=== PATIENT | female | born 1995 | race Two or more races ===

== ENCOUNTER 2018-01-01 15:21 | Emergency (ER) | payer MEDICAID ==
[~2018-01-01] VITALS: Ht 170.2 cm; Wt 59.0 kg
[2018-01-01 16:01] LABS: Urine Bacteria FEW /hpf (None Seen); Urine Blood TRACE /uL (Negative); Urine Specific Gravity 1.007 (1.001-1.035); Urine WBC 1 /hpf (0 - 5)
[2018-01-01 16:38] LABS: Basophils # (auto) 0 uL; Hematocrit 43.7 % (36.0-46.0); Lymphocytes # (auto) 1.3 uL; Monocytes # (auto) 0.8 uL; Neutrophils # (auto) 7.1 uL; White Blood Cell 9.2 10^3/uL (4.4-10.8)
[2018-01-01 16:40] LABS: Basophils % (auto) 0.5 % (0.0-2.0); Eosinophils # (auto) 0 uL; Eosinophils % (auto) 0.4 % (0.0-7.0); Lymphocytes % (auto) 13.8 % (10.0-50.0); Mean Corpuscular Hemoglobin 34.1 pg (28.0-32.0); Mean Corpuscular Hgb Conc. 34.3 g/dL (32.0-36.0); Mean Corpuscular Volume 99.5 fL (80.0-100.0); Monocytes % (auto) 8.7 % (0.0-12.0); Neutrophils % (auto) 76.6 % (37.0-80.0); Nucleated Red Blood Cells % 0.1 %; Platelet Count (auto) 291 10^3/uL (140-450); Red Blood Cells 4.39 10^6/uL (4.0-5.20); Red Cell Distribution Width 14.7 % (11.8-14.3)
[2018-01-01 16:56] LABS: Albumin 3.8 g/dL (3.4-5.0); BUN/Creatinine Ratio 9.3; Calcium 8.9 mg/dL (8.5-10.1)
[2018-01-01 17:00] LABS: Bilirubin, Total 0.9 mg/dL (0.2-1.0); Total Protein 7.2 g/dL (6.4-8.2)
[2018-01-01] MEDS ORDERED: SODIUM CHLORIDE 0.9% 1,000 ML IV ONE (19:35)
[2018-01-01] MEDS ORDERED: KETOROLAC TROMETH 30 MG/ML 1ML VIAL IV ONE (19:45)
[2018-01-01] MEDS ORDERED: LORazepam 2MG/ML-1ML VIAL IV ONE (19:45)
[2018-01-01 22:08] VITALS: BP 135/77
== END 2018-01-01 22:31 | disposition home or self-care (01) ==
LOC: ER 15:26
DX: R10.13 Epigastric pain (principal); R11.2 Nausea with vomiting, unspecified; F10.239 Alcohol dependence with withdrawal, unspecified; J45.909 Unspecified asthma, uncomplicated; Z77.22 Contact with and (suspected) exposure to environmental tobacco smoke (acute) (chronic); Y90.9 Presence of alcohol in blood, level not specified
CPT/HCPCS: 36415; 74176; 80053; 80320; 81001; 81025; 82150; 83690; 85025; 96361; 96374; 96375; 99285; J1885; J2060; J7030

== ENCOUNTER 2019-03-01 18:09 | Emergency (ER) | payer MEDICAID ==
[~2019-03-01] VITALS: Ht 170.2 cm; Wt 63.5 kg
[2019-03-01] MEDS ORDERED: traMADol HCL 50 MG TAB PO ONE (20:15)
[2019-03-01 20:24] LABS: Urine Pregnacy Test Negative (Negative)
[2019-03-01 20:26] LABS: Urine Bacteria NONE SEEN /hpf (None Seen); Urine Blood Negative /uL (Negative); Urine Mucus FEW (None Seen); Urine Specific Gravity 1.029 (1.001-1.035); Urine WBC 2 /hpf (0 - 5)
[2019-03-01 20:35] LABS: Alcohol, Urine < 3.0 mg/dL (0-5); Amphetamine Screen, Urine NEGATIVE (NEGATIVE); Barbiturate Scree,Urine NEGATIVE (NEGATIVE); Benzodiazephine Screen, Urine NEGATIVE (NEGATIVE); Cannabinoid Screen, Urine NEGATIVE (NEGATIVE); Cocaine Screen, Urine POSITIVE (NEGATIVE); Opiate Scree,Urine NEGATIVE (NEGATIVE); Phencyclidine Screen, Urine NEGATIVE (NEGATIVE)
[2019-03-01 23:00] VITALS: BP 132/70
[2019-03-01 23:12] LABS: Basophils # (auto) 0.1 uL; Basophils % (auto) 0.5 % (0.0-2.0); Eosinophils # (auto) 0.1 uL; Eosinophils % (auto) 1.1 % (0.0-7.0); Hematocrit 42.7 % (36.0-46.0); Hemoglobin 14.2 g/dL (12.2-16.2); Lymphocytes # (auto) 2.2 uL; Lymphocytes % (auto) 22.1 % (10.0-50.0); Mean Corpuscular Hemoglobin 33.6 pg (28.0-32.0); Mean Corpuscular Hgb Conc. 33.3 g/dL (32.0-36.0); Mean Corpuscular Volume 100.8 fL (80.0-100.0); Monocytes # (auto) 0.8 uL; Neutrophils # (auto) 6.8 uL; Neutrophils % (auto) 68.3 % (37.0-80.0); Platelet Count (auto) 336 10^3/uL (140-450); Red Blood Cells 4.23 10^6/uL (4.0-5.20)
[2019-03-01 23:37] LABS: Potassium 4.1 mmol/L (3.5-5.1)
[2019-03-01 23:45] LABS: Albumin 3.8 g/dL (3.4-5.0); BUN/Creatinine Ratio 16.3; Calcium 8.8 mg/dL (8.5-10.1)
[2019-03-01 23:48] LABS: Bilirubin, Total 0.7 mg/dL (0.2-1.0); Total Protein 7.1 g/dL (6.4-8.2)
== END 2019-03-02 01:21 | disposition home or self-care (01) ==
LOC: ER 18:10
DX: S09.90XA Unspecified injury of head, initial encounter (principal); F14.10 Cocaine abuse, uncomplicated; J45.909 Unspecified asthma, uncomplicated; Y08.89XA Assault by other specified means, initial encounter; Y93.89 Activity, other specified; Y99.8 Other external cause status; Y92.89 Other specified places as the place of occurrence of the external cause
CPT/HCPCS: 36415; 70450; 80053; 80307; 81001; 81025; 85025